=== PATIENT | male | born 1980 | race Two or more races ===

== ENCOUNTER → 2017-02-10 | Day surgery (SDC) | payer BC ==
[~2017-02-10] VITALS: Ht 170.2 cm; Wt 97.2 kg
[~2017-02-10] MED LIST: FIBER CHOICE C1.5 GM PO; METAMUCIL PACKE1 PKT PO; PERCOCET 5-3251 EACH PO; VALIUM5 MG PO
--- NOTE | ~2017-02-10 | OR ---
PATIENT'S NAME: JAYCOB KUNZ [facility] AGE: 36 Y [address] ROOM: [place] [address] LOCATION: [facility] [place] ADMIT DATE: 02/10/2017 OR/Procedure Report DISCHARGE DATE: FAMILY PHYSICIAN: PHYSICIAN, NO ATTENDING PHYSICIAN: Anuj Ibarra SURGEON: Anuj Ibarra MD MOBILE PHONE SALESPERSON: DATE OF PROCEDURE: 02/10/2017 PREOPERATIVE DIAGNOSES: 1. 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 2. External hemorrhoids. POSTOPERATIVE DIAGNOSES: 1. 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 2. External hemorrhoids. PROCEDURE PERFORMED: 1. Lateral internal sphincterotomy. 2. Excision of external hemorrhoid and sentinel tag. ANESTHESIA: General. ESTIMATED BLOOD LOSS: 20 mL. SPECIMENS: External hemorrhoid and sentinel tag. REASON/INDICATIONS FOR PROCEDURE: The patient is a 36-year-old gentleman, who has had chronic anal pain for years now. It has gotten worse lately. On exam, he had a definite chronic posterior anal fissure and significant pain, but he also had a very redundant external hemorrhoid and a large skin tag. After discussing treatment options, he elected to proceed with surgery. PROCEDURE IN DETAIL: The patient was taken to the operating suite and placed in the supine position. After general endotracheal anesthesia was obtained, he was placed up in stirrups. The perianal area was prepped with Betadine and draped. Lidocaine was infiltrated around the side of the anus. A digital rectal exam was performed and the sphincter muscle was gently dilated. A Hill- Mota retractor was then placed across this anal canal. A small stab incision was made along the right side of the internal sphincter. We were able to dissect out the sphincter up to the dentate line. This was then sharply divided with scissors. The puncture site was closed with a horizontal chromic suture. Then in the anterior position was the large external hemorrhoid that we excised and sent to Pathology. Posteriorly, where the fissure was a large tag and we just excised the tag in this area. The patient [facility]GE[facility] 36 Y [address] ROOM: [place] [address] LOCATION: [facility] [place] ADMIT DATE: 02/10/2017 OR/Procedure Report DISCHARGE DATE: FAMILY PHYSICIAN: PHYSICIAN, NO ATTENDING PHYSICIAN: Anuj Ibarra tolerated the procedure fine. POSTPROCEDURE PLAN: The patient will be discharged to home when awake and alert. He is given a prescription for Percocet and Valium. We will see him back in the office in a few weeks for recheck. He is to avoid any constipation issues, and encouraged to use sitz baths. MD Letty MCGUIRETM/modl /[id number] d: 02/10/171955 t: 02/19/1714, OPERATIVE SUMMARY
== END | disposition disaster alternative care site (69) ==
LOC: GPOC 02-05 15:00 → GSDC 10:28 → GPOC 15:00
PROC: 0D8R0ZZ Division of Anal Sphincter, Open Approach (ICD-10-PCS; principal; 2017-02-10)
PROC: 06BY0ZC Excision of Hemorrhoidal Plexus, Open Approach (ICD-10-PCS; 2017-02-10)
DX: K64.9 Unspecified hemorrhoids (principal); K60.1 Chronic anal fissure; K62.4 Stenosis of anus and rectum
CPT/HCPCS: J0694; J1100; J2001; J2405; J7030